=== PATIENT | male | born 2000 | race Caucasian/White ===

== ENCOUNTER 2021-06-03 09:17 | Emergency (ER) | payer OTHER ==
[~2021-06-03] VITALS: Ht 170.2 cm; Wt 71.0 kg
[2021-06-03 09:29] VITALS: BP 129/83
--- NOTE | 2021-06-03 10:16 | REP ---
INDICATION: middle only: trauma COMPARISON: None. TECHNIQUE: AP, lateral, bilateral oblique views left 3rd digit. FINDINGS: The osseous structures and joint spaces are intact and normal. There is no evidence for acute fracture or dislocation. Surrounding soft tissues are unremarkable. No subcutaneous emphysema or radiodense foreign body. IMPRESSION: . No acute fracture or dislocation. <Electronically signed by Hemanth Livingston > 06/03/21 1012
== END 2021-06-03 10:42 | disposition home or self-care (01) ==
LOC: M ED 09:17
DX: S60.032A Contusion of left middle finger without damage to nail, initial encounter (principal); W22.8XXA Striking against or struck by other objects, initial encounter; Y92.9 Unspecified place or not applicable; Y93.9 Activity, unspecified; Y99.1 Military activity; Z91.030 Bee allergy status

== ENCOUNTER 2021-10-12 21:18 | Emergency (ER) | payer OTHER ==
[~2021-10-12] VITALS: Ht 170.2 cm; Wt 72.8 kg
[2021-10-12 23:15] VITALS: BP 137/62
== END 2021-10-12 23:17 | disposition home or self-care (01) ==
LOC: M ED 21:18
DX: S62.322A Displaced fracture of shaft of third metacarpal bone, right hand, initial encounter for closed fracture (principal); W22.8XXA Striking against or struck by other objects, initial encounter; M79.89 Other specified soft tissue disorders; Z91.030 Bee allergy status; Y92.9 Unspecified place or not applicable; Y93.9 Activity, unspecified; Y99.0 Civilian activity done for income or pay